=== PATIENT | female | born 1985 | race Caucasian/White ===

== ENCOUNTER 2024-01-03 09:11 | Emergency (ER) | payer OTHER, BC ==
[~2024-01-03] VITALS: Ht 162.6 cm; Wt 77.1 kg
[2024-01-03 10:11] VITALS: BP 119/70
[2024-01-03] MEDS ORDERED: Ketorolac Tromethamine 10 MG Tab PO ONE (11:35)
[2024-01-03] MEDS ORDERED: Lidocaine 4% 1 Patch TOP ONE (11:35)
[2024-01-03] MEDS ORDERED: Acetaminophen 500 MG Tab PO ONE (11:35)
[2024-01-03] MEDS ORDERED: LIDO700A20 TOP ×2 (11:59→12:00)
== END 2024-01-03 12:18 | disposition home or self-care (01) ==
LOC: ER 09:11
DX: S29.012A Strain of muscle and tendon of back wall of thorax, initial encounter (principal); M62.830 Muscle spasm of back; X58.XXXA Exposure to other specified factors, initial encounter; Y92.813 Airplane as the place of occurrence of the external cause
CPT/HCPCS: 71101; 99283-25; A9270